=== PATIENT | female | born 1990 | race African-American/Black ===

== ENCOUNTER 2017-08-06 07:58 | Emergency (ER) | payer MEDICAID ==
[~2017-08-06] VITALS: Ht 167.6 cm; Wt 81.6 kg
[2017-08-06 08:19] VITALS: BP 121/69
== END 2017-08-06 09:51 | disposition home or self-care (01) ==
LOC: ER 07:58
DX: N93.9 Abnormal uterine and vaginal bleeding, unspecified (principal)
CPT/HCPCS: 36415; 81025; 84702